=== PATIENT | male | born 1965 | race Hispanic/Latino ===

== ENCOUNTER 2024-05-19 21:27 | Emergency (ER) | payer OTHER ==
[2024-05-19] MEDS ORDERED: Amoxicillin/Potassium Clav 875 MG TAB ONE (21:46)
[2024-05-19] MEDS ORDERED: Bacitracin Zinc Ointment 30 gm TUBE ONE (21:46)
[2024-05-19] MEDS ORDERED: Boostrix 0.5 ML (Tdap) VIAL (>/=7 yrs of age) ONE (21:47)
== END 2024-05-19 22:00 | disposition home or self-care (01) ==
LOC: NAV ERS 21:27
DX: S71.151A Open bite, right thigh, initial encounter (principal); S70.311A Abrasion, right thigh, initial encounter; W54.0XXA Bitten by dog, initial encounter; Z23 Encounter for immunization
CPT/HCPCS: 90471; 90715